=== PATIENT | male | born 1945 | race Caucasian/White ===

== ENCOUNTER → 2016-07-04 | Outpatient (CLI) | payer MEDICARE, OTHER | LOC: LAB.O 09:56 | DX: E11.9 Type 2 diabetes mellitus without complications (principal); I10 Essential (primary) hypertension; R79.9 Abnormal finding of blood chemistry, unspecified; Z85.46 Personal history of malignant neoplasm of prostate; Z12.5 Encounter for screening for malignant neoplasm of prostate ==

== ENCOUNTER → 2016-12-25 | Outpatient (CLI) | payer MEDICARE, OTHER | END | disposition home or self-care (01) | LOC: LAB.O 07:26 | DX: N18.3 Chronic kidney disease, stage 3 (moderate) (principal); I10 Essential (primary) hypertension; E11.21 Type 2 diabetes mellitus with diabetic nephropathy; E11.9 Type 2 diabetes mellitus without complications; E78.00 Pure hypercholesterolemia, unspecified; R79.9 Abnormal finding of blood chemistry, unspecified ==

== ENCOUNTER → 2017-05-15 | Outpatient (CLI) | payer MEDICARE, OTHER ==
--- NOTE | 2017-05-16 14:01 | RAD ---
EXAM DESCRIPTION: Knee,Left Complete CLINICAL HISTORY: 71 years,Male,PAIN COMPARISON: None FINDINGS: The left knee demonstrates total knee arthroplasty without evidence of fracture or lucency about the hardware devices.. The joint spaces are unremarkable. The soft tissues are unremarkable. No joint effusion. IMPRESSION: Unremarkable left total knee arthropathy Electronically signed by: Ba Humphrey MD 05/16/2017 1:59 PM [facility]
--- NOTE | 2017-05-16 14:01 | RAD ---
EXAM DESCRIPTION: Pelvis CLINICAL HISTORY: PAIN IN LEFT HIP COMPARISON: None. IMPRESSION: Single AP portable supine view of the pelvis shows no evidence of acute fracture, focal bone destruction, or joint dislocation. Mild joint space narrowing and sclerotic changes to the superior lateral acetabulum bilaterally are seen consistent with mild osteoarthritic-type changes. Severe disc degenerative changes to the visualized lower lumbar spine are seen. Electronically signed by: Juan Eason MD 05/16/2017 2:00 PM [facility]
== END | disposition home or self-care (01) ==
LOC: RAD 10:06
PROVIDERS: ATTEND Orthopaedic Surgery
DX: M25.562 Pain in left knee (principal); M25.552 Pain in left hip

== ENCOUNTER → 2017-05-16 | Outpatient (CLI) | payer MEDICARE, OTHER | END | disposition home or self-care (01) | LOC: LAB.O 09:13 | PROVIDERS: ATTEND Emergency Medicine | DX: E87.6 Hypokalemia (principal); I10 Essential (primary) hypertension; M00.869 Arthritis due to other bacteria, unspecified knee ==

== ENCOUNTER → 2017-05-30 | Outpatient (CLI) | payer MEDICARE, OTHER ==
--- NOTE | 2017-05-30 14:43 | NM ---
EXAM DESCRIPTION: Nuclear Medicine Bone Scan, 3Phase CLINICAL HISTORY: UNILATERAL PRIMARY OSTEOARTHRITIS COMPARISON: Left knee radiograph dated May 15, 2017 TECHNIQUE: Following intravenous administration of 26.9 mCi technetium 99m MDP, 3 phase bone scan including blood flow, blood pool, and delayed phase imaging was obtained. FINDINGS: Blood flow: Anterior and posterior images over the knees show hyperemia to the lateral femoral condyle of the left knee. No hyperemia noted of the right knee. Blood pool: Anterior and posterior images over the knees show increased blood pool to the lateral femoral condylar region of the left knee. Photopenic region demonstrated in the region of the left total knee arthroplasty. There is mild increased blood pool in the distal right femoral region. Delayed phase: There is increased radiotracer uptake in the left patella with photopenic defect noted in the region of the left total knee arthroplasty. There is mild increased uptake in the distal femur, bilateral tibial plateaus, and patella of the right knee. This is compatible with tricompartmental degenerative changes of the right knee. IMPRESSION: 1. Hyperemia with increased blood pool in the region of the left lateral femoral condyle without significant increased uptake in the delayed phase. This is compatible with reactive or gait changes. Additionally, increased uptake in the left patella without significant hyperemia or increased blood pool, also compatible with reactive or gait changes. No scintigraphic evidence for prosthesis loosening. 2. Mild increased uptake in the distal femur, bilateral tibial plateaus, and patella of the right knee. This is compatible with tricompartmental degenerative changes of the right knee. Electronically signed by: Ba Diamond MD 05/30/2017 2:42 PM [facility]
== END ==
LOC: NM 09:00
PROVIDERS: ATTEND Orthopaedic Surgery
DX: M17.12 Unilateral primary osteoarthritis, left knee (principal)
CPT/HCPCS: 78315; A9503

== ENCOUNTER → 2018-01-30 | Outpatient (CLI) | payer MEDICARE, OTHER | LOC: GMAL 17:00 | PROVIDERS: ATTEND Family Medicine | DX: I10 Essential (primary) hypertension (principal) ==

== ENCOUNTER → 2018-03-10 | Outpatient (CLI) | payer MEDICARE, OTHER ==
--- NOTE | 2018-03-10 09:07 | CT ---
EXAM DESCRIPTION: CTA Neck: Computed Tomography. CLINICAL HISTORY: STENOSIS COMPARISON: None. TECHNIQUE: Spiral, axial 2.5 mm scans through the neck soft tissues after bolus infusion of IV contrast. Coronal 6 mm and sagittal 2 mm reconstructions. 3D volume rendering images rotating display . Percentage of stenosis recorded will be based upon NASCET criteria. Total Exam DLP: 804.36 mGy-cm. This exam was performed according to our departmental CT dose-optimization program which includes automated exposure control, adjustment of the mA and/or kV according to patient size and/or use of iterative reconstruction technique; to reduce radiation dose to as low as reasonably achievable (ALARA). FINDINGS: Typical origin of the right CCA from the right innominate artery. Heart and soft plaque in the proximal right ICA. 48% diameter stenosis. Minimal plaque at the origin of the right ECA. No significant plaque in the remainder of the ICA. Typical bifurcation intracranially. Typical origin of the left CCA from the aorta. Intimal wall thickening in the left CCA bulb of 20%. Less than 20% diameter stenosis 25% diameter stenosis 1 cm more distally. No significant atherosclerotic narrowing or stenosis in the remainder of the extracranial ICA or the included intracranial ICA. Standard bifurcation. No extracranial or intracranial aneurysms or mass effect. Large calcification at the origin of the right vertebral artery from the right subclavian artery with approximately 75% diameter stenosis. Standard origin of the left vertebral artery from the left subclavian artery. Minimal narrowing of the arteries in the neck in the vertebral foramina to the base of the skull and junction to form the basilar artery. Pulmonary arteries are codominant. No abnormality in the origins of the vessels from the vertebral or basilar arteries. In the [place], right posterior communicating artery is present supplying the right posterior cerebral artery along with the basilar artery. No extracranial or intracranial aneurysms or mass effect. Spondylosis of the cervical spine from C3-4 down to C6-7. Upper spine is lordotic. Significant bilateral foraminal narrowing at C5-6. Also several levels of facet narrowing. Bilateral arthrosis at the first costo- chondral and costo-sternal junctions. Included lung slater are unremarkable. Calcification in the central right thyroid lobe. Included neck soft tissues show no definite soft tissue masses or abnormal lymph nodes. IMPRESSION: 1. Approximately 75% diameter stenosis of the origin of the right vertebral artery from the right subclavian artery. 2. Approximately 48% diameter stenosis of the proximal right ICA by soft and hard plaque. No other significant stenoses, aneurysms, or mass effect bilaterally. 3. Calcification in the central right lobe of the thyroid gland. Consider thyroid ultrasound follow-up. 4. Spondylosis in the cervical spine with neural foraminal narrowing. Electronically signed by: Jozef Chadwick MD 03/10/2018 9:05 AM CDT
== END ==
LOC: CT 08:00
PROVIDERS: ATTEND Family Medicine
DX: I65.29 Occlusion and stenosis of unspecified carotid artery (principal); M47.892 Other spondylosis, cervical region

== ENCOUNTER → 2018-12-01 | Outpatient (CLI) | payer MEDICARE, OTHER ==
--- NOTE | 2018-12-01 15:17 | RAD ---
EXAM DESCRIPTION: Knee,Right 2 or More Views CLINICAL HISTORY: 73 yearsMale, RIGHT KNEE PN COMPARISON: None. IMPRESSION: 2 views of the right knee demonstrate no evidence of acute fracture or destructive osseous lesion. Severe changes of osteoarthritis in the medial tibiofemoral and patellofemoral compartments with complete loss of the joint spaces and marginal osteophytes. More mild to moderate degenerative changes in the lateral tibiofemoral compartment. Small suprapatellar joint effusion. Electronically signed by: Jarrod Borrero MD 12/01/2018 3:15 PM CDT
== END ==
LOC: RAD 10:32
PROVIDERS: ATTEND Family Medicine
DX: M17.11 Unilateral primary osteoarthritis, right knee (principal)

== ENCOUNTER → 2019-04-27 | Outpatient (CLI) | payer MEDICARE, OTHER ==
--- NOTE | 2019-04-27 09:42 | MRI ---
Study: MRI of the Right Knee. Indication: PAIN IN RIGHT KNEE Technique: Multiplanar, multi sequence MRI of the right knee was obtained without intravenous contrast. Comparison: Radiographs December 01, 2018 Impression: Moderate mucoid degeneration ACL with mild changes PCL. Both the MCL and FCL are slightly thickened and lax with mild increased internal PD signal. In addition, there is mild thickening of the distal IT band. These findings can be seen in the setting of the osteoarthritic knee. No acute tear defect of the medial or lateral collateral structures. Marked attenuation throughout the medial meniscus with complex degenerative tearing and attenuation. Body extruded by 3 mm. Extensive grade 4 chondral loss, cortical remodeling, and subchondral marrow edema throughout the medial compartment. Lateral meniscus intact. Areas of grade 2 and 3 chondral thinning throughout the lateral compartment. Tendinosis quadriceps tendon insertion. Patellar tendon intact. Patchy areas of grade 2 chondrosis throughout the patellofemoral compartment. Moderate size knee effusion. No acute fracture. Moderate tricompartmental joint line osteophytes. Impression: Moderate mucoid degeneration ACL with mild changes PCL. Severe attenuation and degenerative tearing throughout the medial meniscus. Tricompartmental chondrosis, most pronounced at the medial compartment where there is complete grade 4 chondral loss and cortical remodeling. Moderate size knee effusion. Additional findings as above. Electronically signed by: Jerry Maddox MD 04/27/2019 9:41 AM CDT
== END ==
LOC: MRI 07:54
PROVIDERS: ATTEND Family Medicine
DX: M17.11 Unilateral primary osteoarthritis, right knee (principal); M22.41 Chondromalacia patellae, right knee

== ENCOUNTER → 2019-05-11 | Outpatient (CLI) | payer MEDICARE, OTHER ==
--- NOTE | 2019-05-11 09:23 | RAD ---
EXAM DESCRIPTION: Foot,Left 3 Views CLINICAL HISTORY: 73 years, Male, PAIN IN LEFT FOOT COMPARISON: None TECHNIQUE: Three views left foot FINDINGS: Three views of the left foot demonstrate a slightly flat arch on the lateral view with plantar and Achilles calcaneal spurring noted. Additionally ossification along the course of the plantar fascia suggesting old inflammatory disease. No fracture or dislocation is seen. Mild degenerative changes noted. IMPRESSION: Calcaneal spurring and incidental note of ossification along the course of the plantar fascia suggesting old inflammatory disease. Electronically signed by: Herbie Dunn MD 05/11/2019 9:21 AM [facility]
== END ==
LOC: YCFC.O 08:23
PROVIDERS: ATTEND Family Medicine
DX: M77.32 Calcaneal spur, left foot (principal)

== ENCOUNTER → 2019-06-15 | Outpatient (CLI) | payer MEDICARE, OTHER | LOC: LAB.O 08:10 | PROVIDERS: ATTEND Orthopaedic Surgery | DX: Z01.818 Encounter for other preprocedural examination (principal) ==

== ENCOUNTER 2019-06-20 17:40 | Emergency (ER) | payer MEDICARE, OTHER ==
[2019-06-20 17:55] VITALS: O2SAT 98
[2019-06-20] MEDS ORDERED: KETOROLAC TROMETHAMINE INJ 60 MG/2 ML VIAL IM ONE (18:07)
--- NOTE | 2019-06-20 18:23 | ED.PDOC ---
History of Present Illness - General Chief Complaint: Lower Extremity Injury Stated Complaint: R knee injury Time Seen by Provider: 06/20/19 17:52 Source: patient, RN notes reviewed, Vital Signs reviewed, family Exam Limitations: no limitations - History of Present Illness Initial Comments: this is a 73-year-old gentleman who presents to the emergency Department with complaints of right knee pain. He states that he was sitting on the side of the bed last night and had a little nausea and dizziness when he went to stand he fell forward onto the carpeted floor and hit his right knee on the floor. He noticed this morning that he must of hit his head as well on the right side because there was an abrasion on his face. At any type of headaches or nausea today. He also denies any blurred vision or pain at the site of the abrasion. He has noticed that his right knee is now swollen and he is unable to move it as well as he was prior to the injury. He also states t he is due for a total knee replacementhe right knee and about 3 weeks. He is Lenin had one on the left side. He has taken some Tylenol for the pain. He does not take any anti- inflammatories and does not have any contraindications to taking them. He denies that he is having any nausea or vertigo symptoms today. Allergies/Adverse Reactions: Allergies NO KNOWN ALLERGY Allergy (Verified 01/20/15 11:29) Home Medications: Ambulatory Orders Acetaminophen W/ Codeine [Tylenol W/ CODEINE #3] 1 ea PO Q6HR #30 06/20/19 Aspirin [Aspirin Adult Low Dose] 81 mg PO DAILY 06/20/19 Cholecalciferol [Vitamin D3] 1,000 unit PO DAILY 06/20/19 Duloxetine HCl 60 mg PO BEDTIME 06/20/19 Fluticasone Propionate (Nasal) [Fluticasone Propionate] 1 spray AVA DAILY 06/20/19 Lisinopril 20 mg PO DAILY 06/20/19 Meloxicam 7.5 mg PO DAILY #30 tab 06/20/19 Metformin HCl [Metformin Hydrochloride E] 500 mg PO DAILY 06/20/19 Multiple Vitamins W/ Minerals [Centrum Silver] 1 tab PO DAILY 06/20/19 Ropinirole Hydrochloride 4.5 mg PO BEDTIME 06/20/19 Rosuvastatin Calcium 20 mg PO DAILY 06/20/19 Zolpidem Tartrate 10 mg PO BEDTIME 06/20/19 Review of Systems - Review of Systems Constitutional: States: no symptoms reported EENTM: States: other - abrasion to the right side of the face adjacent to the right eye. Denies: eye pain, blurred vision, tearing, nose pain Respiratory: States: no symptoms reported Cardiology: States: no symptoms reported Gastrointestinal/Abdominal: States: no symptoms reported Musculoskeletal: States: joint pain, joint swelling, other - pain involving the right knee with swelling and decreased range of motion Skin: States: other - abrasion to the right face Neurological: States: no symptoms reported. Denies: headache, numbness, weakness Past Medical History (General) - Patient Medical History Hx Stroke: No Hx Cardiac Disorders: Yes - Hypercholesterolemia Hx Congestive Heart Failure: No Hx Hypertension: Yes Hx Diabetes: Yes Hx MRSA: No Surgical History: other - Vaccination History Hx Tetanus, Diphtheria Vaccination: Yes - 03/2019 Hx Influenza Vaccination: Yes - 03/2019 Hx Pneumococcal Vaccination: Yes - 03/2019 Immunizations Comment: Shingles 05/2019 - Social History Hx Tobacco Use: No Hx Alcohol Use: Yes - Infrequent Family Medical History - Family History Father Living Status: Hx Family Hypertension: Yes Hx Family Cancer: Yes - colon CA Physical Exam - Physical Exam General Appearance: Alert, Comfortable, No apparent distress Eyes, Ears, Nose, Throat: normal ENT inspection, TMs normal, other - abrasion to the right periocular region no tenderness is noted, no evidence of ecchymosis, Neck: non-tender, full range of motion, supple, normal inspection Leg: normal inspection Knee: joint effusion, limited ROM, swelling, other - decreased range of motion involving the right knee. Decreased flexion is noted, there is effusion present, no evidence of ecchymosis, no hematoma formation, Ankle: normal inspection Neuro/Tendon: normal sensation, normal motor functions, normal tendon functions, responds to pain Mental Status: alert, oriented x 3 Skin: normal color Progress - Progress Progress: 06/20/19 18:26 MDM; fracture versus contusion, osteoarthritis, effusion versus hemarthrosis,. We will evaluate with radiographs. We'll go ahead and give Toradol for pain. 06/20/19 18:45 I do not see any evidence of fracture on the plain films. He will be treated with anti-inflammatories and pain relievers. He does have a Crutches as well. I'll discuss knee immobilization. He reports that the toradol is helping. 06/20/19 19:10 the patient prefers not to use a knee immobilizer. We will start him on some Mobic and given Tylenol 3 to be used for pain as needed. - Results/Orders Results/Orders: IMPRESSION: No acute fracture or dislocation seen. Marked osteoarthritic change. Small to moderate joint effusion. Electronically signed by: Latoya Cleveland MD 06/20/2019 6:48 PM [facility]TON[facility] Departure - Departure Clinical Impression: Tricompartment osteoarthritis of right knee Contusion of knee, right Qualifiers: Encounter type: initial encounter Qualified Code(s): S80.01XA - Contusion of right knee, initial encounter Time of Disposition: 19:06 Disposition: Discharge to Home or Self Care Condition: Good Departure Forms: ED Discharge - Pt. Copy, Patient Portal Self Enrollment Instructions: DI for Knee Pain Referrals: Ba Cristobal III, MD [Primary Care Provider] - 1-2 Weeks Prescriptions: Acetaminophen W/ Codeine [Tylenol W/ CODEINE #3] 1 ea PO Q6HR #30 Meloxicam 7.5 mg PO DAILY #30 tab Home Medications: Ambulatory Orders Acetaminophen W/ Codeine [Tylenol W/ CODEINE #3] 1 ea PO Q6HR #30 06/20/19 Aspirin [Aspirin Adult Low Dose] 81 mg PO DAILY 06/20/19 Cholecalciferol [Vitamin D3] 1,000 unit PO DAILY 06/20/19 Duloxetine HCl 60 mg PO BEDTIME 06/20/19 Fluticasone Propionate (Nasal) [Fluticasone Propionate] 1 spray AVA DAILY 06/20/19 Lisinopril 20 mg PO DAILY 06/20/19 Meloxicam 7.5 mg PO DAILY #30 tab 06/20/19 Metformin HCl [Metformin Hydrochloride E] 500 mg PO DAILY 06/20/19 Multiple Vitamins W/ Minerals [Centrum Silver] 1 tab PO DAILY 06/20/19 Ropinirole Hydrochloride 4.5 mg PO BEDTIME 06/20/19 Rosuvastatin Calcium 20 mg PO DAILY 06/20/19 Zolpidem Tartrate 10 mg PO BEDTIME 06/20/19 Additional Instructions: continue with crutches and weight-bear as tolerated. Ice the affected area intermittently over the next 2 days. Use prescriptions as prescribed. Make sure not to use meloxicam 7 days prior to the surgery. Return to emergency department as needed. Keep follow-up with orthopedist.
--- NOTE | 2019-06-20 18:50 | RAD ---
EXAM DESCRIPTION: Knee,Right Complete CLINICAL HISTORY: 73 years Male fall COMPARISON: None TECHNIQUE: Three images of the right knee were obtained. FINDINGS: Marked joint space narrowing. Posterior patellar spurring with narrowing of the patellofemoral joint space. Marked degenerative spurring proximal tibia and medial joint compartment. Small to moderate joint effusion. No fracture seen.. IMPRESSION: No acute fracture or dislocation seen. Marked osteoarthritic change. Small to moderate joint effusion. Electronically signed by: Latoya Cleveland MD 06/20/2019 6:48 PM [facility]
[2019-06-20 19:02] VITALS: BP 132/68; TEMP 98.3
== END 2019-06-20 19:10 | disposition home or self-care (01) ==
LOC: ER 17:40
DX: S80.01XA Contusion of right knee, initial encounter (principal); M17.11 Unilateral primary osteoarthritis, right knee; S00.81XA Abrasion of other part of head, initial encounter; E78.00 Pure hypercholesterolemia, unspecified; I10 Essential (primary) hypertension; E11.9 Type 2 diabetes mellitus without complications; Z79.84 Long term (current) use of oral hypoglycemic drugs; Z79.82 Long term (current) use of aspirin; Z79.899 Other long term (current) drug therapy; W06.XXXA Fall from bed, initial encounter; Y90.9 Presence of alcohol in blood, level not specified
CPT/HCPCS: 73562; J1885

== ENCOUNTER 2019-07-14 05:32 | Inpatient (IN) | payer MEDICARE, OTHER ==
[2019-07-14] MEDS ORDERED: LACTATED RINGERS 1,000 ML ONE (05:40)
[2019-07-14] MEDS ORDERED: SODIUM CHL 0.9% 100ML MINI-BAG 100 ML IVPB ONE (05:40)
[2019-07-14] MEDS ORDERED: ceFAZolin SODIUM 1 GM VIAL ONE ×4 (05:40→20:17)
[2019-07-14] MEDS ORDERED: VANCOMYCIN HCL INJ 1,000 MG VIAL IVPB ONE ×5 (05:40→20:17)
[2019-07-14] MEDS ORDERED: SODIUM CHLORIDE 0.9% 250ML 250 ML ONE ×3 (05:41→20:16)
[2019-07-14] MEDS ORDERED: TRANEXAMIC ACID 1,000 MG/10 ML VIAL ONE (05:41)
[2019-07-14] MEDS ORDERED: SODIUM CHLORIDE 0.9% 100ML 100 ML IVPB ONE (05:44)
[2019-07-14] MEDS ORDERED: ACETAMINOPHEN IV 1000MG 100 ML ONE (06:18)
[2019-07-14] MEDS ORDERED: MIDAZOLAM INJ 5 MG/5 ML VIAL ONE (06:18)
[2019-07-14] MEDS ORDERED: HYDROmorphone HCL INJ 2 MG/ML VIAL ONE (06:18)
[2019-07-14] MEDS ORDERED: KETAMINE HCL 100 MG/ML VIAL ONE (06:18)
[2019-07-14] MEDS ORDERED: BUPIVACAINE LIPOSOME 13.3 MG/ML VIAL INJ ONE ×3 (06:31→07:27)
[2019-07-14] MEDS ORDERED: BUPIVACAINE 0.5% 30 ML VIAL INJ ONE ×2 (06:31→07:03)
[2019-07-14] MEDS: TRANEXAMIC ACID 1,000 MG/10 ML VIAL ONE ×2 (06:38→10:02)
[2019-07-14] MEDS ORDERED: ceFAZolin SODIUM 1 GM VIAL INJ ONE (07:03)
[2019-07-14] MEDS ORDERED: ELECTROLYTE-A 1,000 ML IVS ONE (08:20)
[2019-07-14] MEDS ORDERED: HYDROcodone 5MG/APAP 325MG 1 EA TAB PO PRN (09:53)
[2019-07-14] MEDS ORDERED: TRANEXAMIC ACID INJ 1,000 MG in SODIUM CHLORIDE 0.9% 100ML 100 ML IVPB ONE (09:53)
[2019-07-14] MEDS ORDERED: PROMETHAZINE HCL INJ 12.5 MG in SODIUM CHLORIDE 0.9% 50ML 50 ML IVPB PRN (09:53)
[2019-07-14] MEDS ORDERED: TEMAZEPAM 15 MG CAP PO PRN (09:53)
[2019-07-14] MEDS ORDERED: CYCLOBENZAPRINE HCL 10 MG TAB PO PRN (09:53)
[2019-07-14] MEDS ORDERED: MORPHINE SULFATE INJ 10 MG/ML VIAL IV PRN (09:53)
[2019-07-14] MEDS ORDERED: BENZOCAINE-MENTH LOZ (CEPACOL) 1 EA LOZ MT PRN (09:53)
[2019-07-14] MEDS ORDERED: BISACODYL SUPPOSITORY 10 MG PR PRN (09:53)
[2019-07-14] MEDS ORDERED: ACETAMINOPHEN 500 MG TAB PO PRN (09:53)
[2019-07-14] MEDS ORDERED: ONDANSETRON INJ 4 MG/2 ML VIAL IV PRN (09:53)
[2019-07-14] MEDS ORDERED: MORPHINE SULFATE INJ 10 MG/ML VIAL IM PRN (09:53)
[2019-07-14] MEDS ORDERED: SODIUM CHLORIDE 0.9% (FLUSH) 10 ML SYG IV PRN (09:53)
[2019-07-14] MEDS ORDERED: ZOLPIDEM TARTRATE 5 MG TAB PO PRN (09:53)
[2019-07-14] MEDS ORDERED: ALUMINUM & MAGNESIUM HYDROXIDE 30 ML UD PO PRN (09:53)
[2019-07-14] MEDS ORDERED: NALOXONE HCL INJ 0.4 MG/ML VIAL IV PRN (09:53)
[2019-07-14] MEDS ORDERED: ACETAMINOPHEN 325 MG TAB PO PRN (09:53)
[2019-07-14] MEDS ORDERED: PROMETHAZINE HCL INJ 25 MG in SODIUM CHLORIDE 0.9% 50ML 50 ML IVPB PRN (09:53)
[2019-07-14] MEDS ORDERED: DEX 5% W/NACL 0.45% 1000ML 1,000 ML IVS PRN (09:53)
[2019-07-14] MEDS ORDERED: MAGNESIUM HYDROXIDE 30 ML UD PO PRN (09:53)
[2019-07-14] MEDS ORDERED: IV SET AND CAP CHANGE INJ INJ SCH (10:00)
[2019-07-14] MEDS ORDERED: MORPHINE PCA 1 MG/ML 100 ML BAG IVPB SCH (10:00)
--- NOTE | 2019-07-14 11:34 | RAD ---
EXAM DESCRIPTION: Knee,Right 1 or 2 Views CLINICAL HISTORY: 73 years, Male, TKA COMPARISON: None TECHNIQUE: Two radiographic views right knee FINDINGS: Postoperative radiographic views right knee demonstrate total knee replacement without patellar articular component placed. Subcutaneous gas surrounds the patella from recent surgery. Alignment is essentially anatomic. No periprosthetic fractures are noted. IMPRESSION: 1. Satisfactory postoperative right total knee replacement examination. Electronically signed by: Herbie Dunn MD 07/14/2019 11:33 AM [facility]
[2019-07-14] MEDS ORDERED: diphenhydrAMINE HCL 50 MG/ML VIAL IV ONE (12:00)
[2019-07-14] MEDS ORDERED: DEXAMETHASONE INJ 10 MG/ML VIAL IV ONE (12:00)
[2019-07-14] MEDS ORDERED: LIDOCAINE 1% 10 ML VIAL INJ ONE (12:00)
[2019-07-14] MEDS ORDERED: PROPOFOL 200 MG/20 ML VIAL IV ONE (12:00)
[2019-07-14] MEDS ORDERED: EPINEPHrine HCL AMP 1 MG/ML AMP IVPB ONE (12:00)
[2019-07-14] MEDS ORDERED: SODIUM CHLORIDE 0.9% 50 ML VIAL INJ ONE (12:00)
[2019-07-14] MEDS ORDERED: ePHEDrine SULF 50 MG/ML IV ONE (12:00)
[2019-07-14] MEDS ORDERED: raNITIdine HCL INJ 25 MG/ML VIAL IV ONE (12:00)
[2019-07-14] MEDS ORDERED: GLUCAGON INJ 1 MG VIAL SUBCU PRN (12:42)
[2019-07-14] MEDS ORDERED: DEXTROSE 10% 500ML IVPB PRN (12:42)
--- NOTE | 2019-07-14 13:21 | PN ---
DATE: 07/14/2019 SUBJECTIVE: Anderson is doing well and has no pain. OBJECTIVE: Afebrile. Vital signs stable. Dressing is clean, dry and intact. ASSESSMENT: Status post total knee arthroplasty. PLAN: The plan at this point is for Anderson to be weightbearing as tolerated on postoperative day #1. #[id number] [facility]
--- NOTE | 2019-07-14 14:16 | CONS ---
SUPERVISING PHYSICIAN: Anderson Martinez MD DATE OF CONSULTATION: 07/14/2019 REASON FOR CONSULTATION: Medical management status post right total knee arthroplasty. HISTORY OF PRESENT ILLNESS: Mr. Ling is a 73-year-old male patient who has had a longstanding history of osteoarthritis in his right knee. He had several attempts at outpatient management including steroid injections and physical therapy. He has failed to respond to any conservative measures of treatment and has developed a limp which is causing some pain in his left arthritic ankle and has requested an elevated right total knee arthroplasty for symptom control. He was admitted for an elective right total knee arthroplasty. He had no intraoperative complications. He was seen in the immediate postoperative state in stable condition. PAST MEDICAL HISTORY: 1. Hyperlipidemia 2. Hypertension. 3. Benign prostatic hypertrophy on Flomax. 4. Type 2 diabetes diagnosed in 2016. 5. Obstructive sleep apnea having to use BiPAP. 6. Restless leg syndrome on Requip. 7. Open angle glaucoma. 8. Prostate cancer with radiation treatment. PAST SURGICAL HISTORY: 1. Prostate cancer radiation for abbreviated treatment in 2007. 2. Glaucoma surgery to the right eye in 2009, left eye in 2009 and again left eye in 2015. 3. Cataract surgery bilaterally in 2010. 4. Left total knee arthroplasty in 2012 with revision in 2013. HOME MEDICATIONS: 1. Nasonex daily. 2. Duloxetine 60 mg at bedtime. 3. Vitamin D3 1000 units daily. 4. Zolpidem 10 mg at bedtime. 5. Rosuvastatin calcium 20 mg daily. 6. Requip 4.5 mg daily at bedtime. 7. Metformin 500 mg daily. 8. Lisinopril 20 mg b.i.d. 9. Centrum 1 tablet daily. 10. Aspirin 81 mg daily. ALLERGIES: NO KNOWN DRUG ALLERGIES FAMILY HISTORY: His father is at age 78 due to colon cancer. Mother at age 66 due to lung cancer. He has one sister who is healthy and he has two sons, both healthy. He has a maternal aunt that has diabetes. 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 He does drink alcohol on a very rare occasion. He has never smoked and does not use illicit drugs. REVIEW OF SYSTEMS: CONSTITUTIONAL: Negative for any fevers, chills or weight changes. HEENT: Negative for headaches, sore throats, earaches, nasal congestion, vision changes. RESPIRATORY: Negative for coughing, wheezing or shortness of breath. CARDIOVASCULAR: Negative for chest pain, palpitations, tachycardia or edema. MUSCULOSKELETAL: As noted in history of present illness. NEUROLOGIC: Negative for headaches, syncope, ataxia, seizures or other neurological deficits. SKIN: Denies lesions, rashes, moles or unexplained changes. HEMATOLOGICAL: Denies easy bruising or unexplained bleeding or transfusion reactions. PSYCHIATRIC: Negative for anxiety, depression, sleep disturbances. PHYSICAL EXAMINATION: VITAL SIGNS: Temperature 98.4. Pulse 71. Blood pressure 117/68. Respirations 16. Saturation 98% on room air. GENERAL: The patient is resting comfortably and has good pain control. He is in no acute distress. He is alert. HEENT: Tympanic membranes clear bilaterally. Oropharynx is pink, moist without any lesions. NECK: Supple, nontender with full range of motion. No jugular venous distention noted. RESPIRATORY: Lungs clear to auscultation bilaterally without any rhonchi, wheezes or rales. CARDIOVASCULAR: Regular rate and rhythm without any appreciable murmurs, gallops, or rubs. ABDOMEN: Soft, nontender. Positive bowel sounds. EXTREMITIES: Right knee has Iceman in place with bulky dressing. Distal pulses are 2+ bilaterally. NEUROLOGIC: The patient is alert and oriented times three. LABORATORY: Postoperative hemoglobin and hematocrit pending. Postoperative blood sugar was 131. Toxicology screen, urine was negative. ASSESSMENT: 1. Osteoarthritis of the right knee failing to respond to outpatient treatment measures requiring right total knee arthroplasty for symptom control, surgery performed by Dr. Brandon Eddy, orthopedic surgeon, postoperative day 0. 2. Hypertension. 3. Benign prostatic hypertrophy with a history of prostate cancer with radiation. 4. Type 2 diabetes mellitus on oral therapy. 5. History of obstructive sleep apnea having to use the BiPAP in the past with CPAP not working. 6. Restless leg syndrome on Requip. 7. Open angle glaucoma. 8. Hyperlipidemia. PLAN: We will follow the patient as he progresses through his physical therapy and rehabilitation efforts. We will defer surgical management postoperatively to Dr. Eddy and physical therapy efforts to Physical Therapy. I have reviewed his medications and resumed those as appropriate to care. He is on a sliding scale per insulin protocol. He will be on DVT prophylaxis per postoperative protocol. I did discuss with him possible plan for rehab. At this point, he is not sure. He is leaning towards maybe home health, but I also did discuss [facility]. He is encouraged to continue with good bronchial hygiene and incentive spirometry. Until the patient can transition to outpatient management, we will continue to monitor and treat as needed. #[id number] [facility]
[2019-07-14] MEDS ORDERED: SODIUM CHL 0.9% 50ML MIN-BAG+ 50 ML IVPB ONE ×2 (15:43→20:16)
[2019-07-14] MEDS: CELECOXIB 100 MG CAP PO SCH (16:02)
[2019-07-14] MEDS: ceFAZolin SODIUM 1 GM in SODIUM CHL 0.9% 50ML MIN-BAG+ 50 ML IVPB SCH ×2 (16:03→23:21)
[2019-07-14] MEDS: INSULIN LISPRO 100 UNITS/ML PEN SUBCU SCH ×2 (16:39→20:43)
[2019-07-14] MEDS: VANCOMYCIN HCL INJ 1,000 MG in SODIUM CHLORIDE 0.9% 250ML 250 ML IVPB SCH (18:09)
[2019-07-14] MEDS ORDERED: ENOXAPARIN SODIUM 30 MG/0.3 ML SYG SUBCU ONE (20:14)
[2019-07-14] MEDS: ZOLPIDEM TARTRATE 5 MG TAB PO SCH (20:20)
[2019-07-14] MEDS: DULoxetine HCL 30 MG CAP PO SCH (20:20)
[2019-07-14] MEDS: ATORVASTATIN 20 MG TAB PO SCH (20:21)
[2019-07-14] MEDS: DOCUSATE CALCIUM 240 MG CAP PO SCH (20:22)
[2019-07-14] MEDS: LISINOPRIL 10 MG TAB PO SCH (20:23)
[2019-07-14] MEDS: ENOXAPARIN SODIUM 30 MG/0.3 ML SYG SUBCU SCH (23:04)
[2019-07-15] MEDS: VANCOMYCIN HCL INJ 1,000 MG in SODIUM CHLORIDE 0.9% 250ML 250 ML IVPB SCH (05:46)
[2019-07-15] MEDS: INSULIN LISPRO 100 UNITS/ML PEN SUBCU SCH ×4 (07:08→21:15)
[2019-07-15] MEDS ORDERED: SODIUM CHL 0.9% 50ML MIN-BAG+ 50 ML IVPB ONE (07:48)
[2019-07-15] MEDS ORDERED: CYCLOBENZAPRINE HCL 5 MG TAB ONE (07:48)
[2019-07-15] MEDS ORDERED: ceFAZolin SODIUM 1 GM VIAL ONE (07:49)
[2019-07-15] MEDS: LISINOPRIL 10 MG TAB PO SCH ×2 (09:19→21:14)
[2019-07-15] MEDS: CELECOXIB 100 MG CAP PO SCH ×2 (09:19→16:32)
[2019-07-15] MEDS: CYCLOBENZAPRINE HCL 5 MG TAB PO PRN ×2 (09:19→17:45)
[2019-07-15] MEDS: FLUTICASONE PROP 0.05% NASAL 16 GM BTTL BNAS SCH (09:20)
[2019-07-15] MEDS: ceFAZolin SODIUM 1 GM in SODIUM CHL 0.9% 50ML MIN-BAG+ 50 ML IVPB SCH (09:20)
[2019-07-15] MEDS: MAGNESIUM OXIDE 400 MG TAB PO SCH (09:20)
[2019-07-15] MEDS: ASPIRIN (ENTERIC COATED) 81 MG TAB PO SCH (09:20)
[2019-07-15] MEDS: metFORMIN XR 500 MG TAB.ER.24 PO SCH (09:20)
--- NOTE | 2019-07-15 09:22 | RAD ---
EXAM DESCRIPTION: Fluoroscopy Up to 1Hr CLINICAL HISTORY: TKA RIGHT KNEE COMPARISON: 20 June 2019 TECHNIQUE: Fluoroscopy time is 1.9 seconds, dose is 0.19 mGy, one spot film. FINDINGS: The exam demonstrates placement of a right total knee arthroplasty. Positioning is near-anatomic. IMPRESSION: Right total knee arthroplasty. Electronically signed by: Ba Ceballos MD 07/15/2019 9:20 AM [facility]
[2019-07-15] MEDS: TRANEXAMIC ACID 1,000 MG/10 ML VIAL ONE (10:05)
--- NOTE | 2019-07-15 10:34 | PN ---
DATE: 07/15/19 SUBJECTIVE: Mr. Ling is doing pretty well and his pain is well controlled. OBJECTIVE: Afebrile. Vital signs stable. Dressing is clean, dry and intact. ASSESSMENT: Status post total knee arthroplasty. PLAN: The plan at this point is for him to begin weightbearing as tolerated today. #[id number] [facility]
[2019-07-15] MEDS: ENOXAPARIN SODIUM 30 MG/0.3 ML SYG SUBCU SCH ×2 (11:47→23:04)
--- NOTE | 2019-07-15 14:50 | PN ---
SUPERVISING PHYSICIAN: Anderson Martinez MD DATE: 07/15/19 SUBJECTIVE: The patient is doing well. He has had good pain control. He has had no nausea or vomiting. He is able to tolerate his diet. He has been doing well with physical therapy. He does remain afebrile. OBJECTIVE: VITAL SIGNS: Temperature 98.5. Pulse 87. Blood pressure 146/72. Respirations 16. Saturation 96% on room air. GENERAL: The patient is resting comfortably and appears to be in no acute distress. CHEST: Lungs are clear to auscultation bilaterally. HEART: Regular rate and rhythm. ABDOMEN: Soft, nontender. Positive bowel sounds. EXTREMITIES: Right knee has a bulky dressing in place with pulses distal being 2+ bilaterally. Capillary refill is brisk. LABORATORY: Postoperative hemoglobin 11.2 and hematocrit 32.7. ASSESSMENT: 1. Osteoarthritis of the right knee failing to respond to outpatient treatment measures requiring right total knee arthroplasty for symptom control, surgery performed by Dr. Brandon Eddy, orthopedic surgeon, postoperative day 1. 2. Hypertension. 3. Benign prostatic hypertrophy with a history of prostate cancer with radiation. 4. Type 2 diabetes mellitus on oral therapy. 5. History of obstructive sleep apnea having to use the BiPAP in the past with CPAP not working. 6. Restless leg syndrome on Requip. 7. Open angle glaucoma. 8. Hyperlipidemia. PLAN: We will continue to follow the patient postoperatively as he continues with his physical therapy rehabilitation efforts. I discussed with him options for rehabilitation after discharge and at this point he and his are both leaning towards outpatient management with home health. [place] I did discuss with them the possibility of going to [facility] and at this point they are still not leaning in that direction and would rather try home health and then [facility] once he could travel better. He does remain on DVT prophylaxis per protocol. He is on sliding scale per protocol. Until the patient can transition to outpatient management, we will continue to monitor and treat as needed. [facility][id number] [facility]
[2019-07-15] MEDS: traMADol HCL 50 MG TAB PO PRN (17:45)
[2019-07-15] MEDS: DULoxetine HCL 30 MG CAP PO SCH (21:14)
[2019-07-15] MEDS: ZOLPIDEM TARTRATE 5 MG TAB PO SCH (21:14)
[2019-07-15] MEDS: ATORVASTATIN 20 MG TAB PO SCH (21:14)
[2019-07-15] MEDS: DOCUSATE CALCIUM 240 MG CAP PO SCH (21:17)
[2019-07-16] MEDS: CELECOXIB 100 MG CAP PO SCH (07:20)
[2019-07-16] MEDS: INSULIN LISPRO 100 UNITS/ML PEN SUBCU SCH ×2 (07:20→11:53)
[2019-07-16] MEDS: metFORMIN XR 500 MG TAB.ER.24 PO SCH (07:20)
--- NOTE | 2019-07-16 08:04 | PN ---
DATE: 07/16/19 SUBJECTIVE: Mr. Ling is doing really well. He is up to bed and has no significant pain. OBJECTIVE: Afebrile. Vital signs stable. The wound is clean. There are no signs or symptoms of infection. ASSESSMENT: Status post total knee arthroplasty. PLAN: The plan at this point is for discharge to home. We will see him back in about 2 weeks. They have been given appropriate instructions on wound care. [facility][id number] [facility]
[2019-07-16] MEDS ORDERED: SODIUM CHLORIDE 0.9% (FLUSH) 10 ML SYG IV SCH (09:00)
[2019-07-16] MEDS: traMADol HCL 50 MG TAB PO PRN (09:11)
[2019-07-16] MEDS: LISINOPRIL 10 MG TAB PO SCH (09:11)
[2019-07-16] MEDS: ASPIRIN (ENTERIC COATED) 81 MG TAB PO SCH (09:12)
[2019-07-16] MEDS: MAGNESIUM OXIDE 400 MG TAB PO SCH (09:12)
[2019-07-16] MEDS: FLUTICASONE PROP 0.05% NASAL 16 GM BTTL BNAS SCH (09:12)
[2019-07-16 09:55] VITALS: O2SAT 97
[2019-07-16 10:10] VITALS: BP 147/79; TEMP 97.8
[2019-07-16] MEDS: ENOXAPARIN SODIUM 30 MG/0.3 ML SYG SUBCU SCH (11:53)
--- NOTE | 2019-07-16 13:51 | DS ---
SUPERVISING PHYSICIAN: Anderson Martinez MD ADMISSION DIAGNOSIS: 1. Osteoarthritis of the right knee failing to respond to outpatient treatment measures requiring right total knee arthroplasty for symptom control, surgery performed by Dr. Brandon Eddy, orthopedic surgeon, postoperative day 0. 2. Hypertension. 3. Benign prostatic hypertrophy with a history of prostate cancer with radiation. 4. Type 2 diabetes mellitus on oral therapy. 5. History of obstructive sleep apnea having to use the BiPAP in the past with CPAP not working. 6. Restless leg syndrome on Requip. 7. Open angle glaucoma. 8. Hyperlipidemia. DISCHARGE DIAGNOSIS: 1. Osteoarthritis of the right knee failing to respond to outpatient treatment measures requiring right total knee arthroplasty for symptom control, surgery performed by Dr. Brandon Eddy, orthopedic surgeon, postoperative day 2. 2. Hypertension. 3. Benign prostatic hypertrophy with a history of prostate cancer with radiation. 4. Type 2 diabetes mellitus on oral therapy. 5. History of obstructive sleep apnea having to use the BiPAP in the past with CPAP not working. 6. Restless leg syndrome on Requip. 7. Open angle glaucoma. 8. Hyperlipidemia. REASON FOR HOSPITALIZATION: Mr. Ling is a 73-year-old male patient who has had a longstanding history of osteoarthritis in his right knee. He had several attempts at outpatient management including steroid injections and physical therapy. He has failed to respond to any conservative measures of treatment and has developed a limp which is causing some pain in his left arthritic ankle and has requested an elevated right total knee arthroplasty for symptom control. He was admitted for an elective right total knee arthroplasty. He had no intraoperative complications. He was seen in the immediate postoperative state in stable condition. LABORATORY: Postoperative hemoglobin 11.2, hematocrit. 32.7. HOSPITAL COURSE: Mr. Ling was admitted for elective right total knee arthroplasty on 07/14/19. He had no intraoperative complications. He is followed postoperatively and had good response to treatment. He was doing well with physical therapy with good pain control. He is tolerating a diet, passing gas, ambulating and being clinically improved well enough to continue with outpatient management. DISCHARGE PHYSICAL ASSESSMENT: VITAL SIGNS: Temperature 97.8. Pulse 94. Blood pressure 147/79. Respirations 18. Saturation 97% on room air. GENERAL: The patient is resting comfortably, appears to be in no acute distress. He is alert. CHEST: Clear to auscultation. HEART: Regular rate and rhythm. ABDOMEN: Soft, nontender. Positive bowel sounds. EXTREMITIES: Right knee has island dressing in place that is clean and dry. There is no erythema noted. Distal pulses are strong. Capillary refill is brisk. NEUROLOGIC: Alert and oriented times 3. PLAN: Mr. Ling was discharged on 07/16/19 with instructions to followup with Dr. Eddy on 07/30/19 at 9 AM. He will continue with physical therapy through home health with [facility]. He was instructed to resume his home medications as directed and take new medications as instructed. He was told to return to the hospital as needed or call Dr. Eddy for any concerning symptoms or other problems. Diet on discharge is diabetic diet as tolerated. Activity to increase as tolerated per physical therapy. He is to utilize a walker. He will have a CPM and wound management per Dr. Eddy's postoperative management. He may shower, no tub baths, as directed. Medications on discharge include: 1. Pain management with [place] 5/325, #50, no refills, written by Dr. Eddy. 2. Flexeril 10 mg t.i.d. as needed for muscle spasms, #15, no refills. 3. Xarelto 10 mg daily for a total of 9 days. DISPOSITION: Home. CONDITION ON DISCHARGE: Stable and improved. #[id number] [facility]
--- NOTE | 2019-07-17 09:12 | OP ---
DATE OF PROCEDURE: 07/14/19 PREOPERATIVE DIAGNOSIS: 1. Osteoarthritis of the right knee. POSTOPERATIVE DIAGNOSIS: 1. Osteoarthritis of the right knee. PROCEDURE: 1. Total knee arthroplasty. SURGEON: Brandon Eddy MD. PARACHUTE PACKER: Jozef Tony CST, SA-C. ANESTHESIA: General anesthesia. COMPLICATIONS: None. FINDINGS: Severe osteoarthritis of the knee. INDICATION: Anderson has a history of severe knee pain for which he has undergone conservative measures. Unfortunately, he has failed to gain relief and has requested operative intervention. After discussing the risks, benefits and alternatives to that, the patient has given informed consent for total knee arthroplasty. PROCEDURE: The patient was brought to the Operating Room and placed in supine position. General anesthesia was induced and the patient's leg was sterilely prepped and draped. Following prepping and draping, the distal femur was exposed and using an intramedullary guide, the distal femoral cut was made. The appropriate sized cutting block was measured, pinned into place, and the anterior, posterior, and chamfer cuts were made. The ACL was transected and the tibia was subluxed. Both the medial and lateral menisci were removed. An intramedullary guide was used to make the proximal tibial cut. The appropriate sized base plate was placed and a trial polyethylene was placed. The trial femur was placed, the knee was reduced, and the knee was taken through a range of motion. The knee was stable in anterior, posterior, varus and valgus stress. The patella tracked anatomically without evidence of subluxation or dislocation. After trialing, the trial components were removed and the bony surfaces were thoroughly irrigated with saline. Following irrigation, the surfaces were dried and the final components were cemented into place. The excess cement was removed and the remaining cement was allowed to cure. The knee was again taken through a range of motion to confirm stability. The wound was then irrigated with saline and closure was performed using PDS to approximate the arthrotomy followed by closure of the subcutaneous tissues with a combination of running and interrupted Monocryl sutures. Sterile dressing was placed. The patient was awoken from anesthesia and taken to Recovery. COMPONENTS: Kacey Triathlon knee, size 5 femur, size 5 tibia, 13 mm insert. POSTOPERATIVE PLAN: The patient will be weight-bearing as tolerated on postoperative day 1. [id number]
[2019-07-17] MEDS ORDERED: BISACODYL SUPPOSITORY 10 MG PR ONE (21:00)
[2019-07-17] MEDS ORDERED: MAGNESIUM HYDROXIDE 30 ML UD PO ONE (21:00)
== END 2019-07-16 14:45 | disposition home health service (06) | DRG 470 ==
LOC: AMB 05:32 → MS 11:58
PROVIDERS: ADMIT Family Medicine; ATTEND Orthopaedic Surgery
PROC: 3E0T3BZ Introduction of Anesthetic Agent into Peripheral Nerves and Plexi, Percutaneous Approach (ICD-10-PCS; 2019-07-14)
PROC: 3E0T33Z Introduction of Anti-inflammatory into Peripheral Nerves and Plexi, Percutaneous Approach (ICD-10-PCS; 2019-07-14)
PROC: 0SRC0J9 Replacement of Right Knee Joint with Synthetic Substitute, Cemented, Open Approach (ICD-10-PCS; principal; 2019-07-14 07:00)
DX: M17.11 Unilateral primary osteoarthritis, right knee (principal); I10 Essential (primary) hypertension; E11.9 Type 2 diabetes mellitus without complications; E78.5 Hyperlipidemia, unspecified; N40.0 Benign prostatic hyperplasia without lower urinary tract symptoms; G47.33 Obstructive sleep apnea (adult) (pediatric); G25.81 Restless legs syndrome; H40.10X0 Unspecified open-angle glaucoma, stage unspecified; E66.9 Obesity, unspecified; Z92.3 Personal history of irradiation; Z96.652 Presence of left artificial knee joint; Z79.82 Long term (current) use of aspirin; Z85.46 Personal history of malignant neoplasm of prostate; Z68.35 Body mass index [BMI] 35.0-35.9, adult; Z79.84 Long term (current) use of oral hypoglycemic drugs; Z79.899 Other long term (current) drug therapy

== ENCOUNTER → 2019-11-10 | Outpatient (CLI) | payer MEDICARE, OTHER | LOC: LAB.O 08:12 | PROVIDERS: ATTEND Family Medicine | DX: E53.8 Deficiency of other specified B group vitamins (principal); R53.83 Other fatigue ==

== ENCOUNTER → 2020-01-11 | Outpatient (CLI) | payer MEDICARE, OTHER | LOC: LAB.O 07:43 | PROVIDERS: ATTEND Family Medicine | DX: I10 Essential (primary) hypertension (principal); Z12.5 Encounter for screening for malignant neoplasm of prostate; E11.9 Type 2 diabetes mellitus without complications; E55.9 Vitamin D deficiency, unspecified; E78.2 Mixed hyperlipidemia | CPT/HCPCS: 36415; 80048; 80061; 80076; 82043; 82306; 82570; 83036; 85025; G0103 ==

== ENCOUNTER → 2020-07-21 | Outpatient (CLI) | payer MEDICARE, OTHER | LOC: GMAL 07:04 | PROVIDERS: ATTEND Family Medicine | DX: D50.8 Other iron deficiency anemias (principal); E11.9 Type 2 diabetes mellitus without complications ==